=== PATIENT | female | born 1990 | race Two or more races ===

== ENCOUNTER 2017-06-12 02:26 | Emergency (ER) | payer OTHER ==
--- NOTE | 2017-06-12 05:30 | PHYS DOC ---
Past Medical History Past Medical History: No Pertinent History Past Surgical History: No Surgical History Alcohol Use: None Drug Use: None Adult General Chief Complaint Chief Complaint: EYE PROBLEMS [facility] HPI Patient is a 26 year old emailed who wears disposable contact lenses who presents with right conjunctival swelling starting earlier this evening. Patient reports mild headache, irritation around eye and blurring of vision right eye. Symptom onset was several hours prior to ED arrival. Patient denies eye injury. Patient denies wearing contact lenses that night. No foreign body sensation. No other acute symptoms or complaints. Review of Systems Review of Systems ROS as per HPI. Allergies Allergies Allergies Coded Allergies Type Severity Reaction Last Updated Verified No Known Drug Allergies 06/12/17 No Physical Exam Physical Exam Constitutional: Well developed, well nourished, no acute distress, non-toxic appearance. [] HENT: Normocephalic, atraumatic, bilateral external ears normal, oropharynx moist, no oral exudates, nose normal. [] Eyes: PERRLA, EOMI, right conjunctiva is swollen, no erythema, foreign body, purulent drainage matting. Mild upper and lower eyelid swelling without erythema. [] Neck: Normal range of motion, no tenderness, supple, no stridor. [] Cardiovascular:Heart rate regular rhythm, no murmur [] EKG EKG [] Radiology/Procedures Radiology/Procedures [] Course & Med Decision Making Course & Med Decision Making Pertinent Labs and Imaging studies reviewed. (See chart for details) [Chemosis without discrete cause. Patient left eye 20/30 with contact lens. Patient unable to see out of right eye without contact lens. No foreign bodies or obvious source of infection. Recommend supportive care with follow up with patient's eye doctor tomorrow. Courtesy no provided. Patient verbalizes understanding agreement discharge instructions prior to departure.] Dragon Disclaimer Dragon Disclaimer This electronic medical record was generated, in whole or in part, using a voice recognition dictation system. Departure Departure Impression: Primary Impression: Chemosis of right conjunctiva Disposition: 01 HOME, SELF-CARE Condition: GOOD Additional Instructions: You were evaluated in the emergency department for right eye conjunctiva swelling (chemiosis). This is a nonspecific condition usually related to eye irritation, rubbing, and sometimes to allergy and infection in contact lens wearers. Please take Benadryl upon returning home and use eyedrops as directed. If symptoms persist upon waking, take Francoise contact your eye doctor for appointment later today. ROBERT PARIS DO Jun 12, 2017 05:30
== END 2017-06-12 03:36 | disposition home or self-care (01) ==
LOC: ER 02:26
DX: H11.421 Conjunctival edema, right eye (principal)
CPT/HCPCS: 99283

== ENCOUNTER 2019-06-27 13:13 | Emergency (ER) | payer SELFPAY ==
[~2019-06-27] VITALS: Ht 157.5 cm; Wt 81.6 kg
[2019-06-27 13:20] VITALS: BP 161/110
--- NOTE | 2019-06-27 14:28 | PHYS DOC ---
Past Medical History Past Medical History: No Pertinent History Past Surgical History: No Surgical History Alcohol Use: None Drug Use: Marijuana Social History Narrative: LAST SMOKED 2 YEARS AGO Adult General Chief Complaint Chief Complaint: CHEST WALL PAIN HPI HPI Patient is a 28 year old female who presents with left-sided chest pain that is sharp when she is just sitting and constant. Patient states she woke at sharp pains with taking a deep breath also. Patient has a IUD Mirena in place. Patient is rating her pain at a 6 out of 10. Review of Systems Review of Systems Cardiovascular: Left chest pain All other systems were reviewed and found to be within normal limits, except as documented in this note. Current Medications Current Medications Current Medications Medications (Trade) Dose Ordered Sig/Agatha Start Time Stop Time Status Last Admin Dose Admin Info (CONTRAST GIVEN -- Rx MONITORING) 1 each PRN DAILY PRN 06/27/19 16:30 06/29/19 16:29 Iohexol (Omnipaque 350 Mg/ml) 90 ml 1X ONCE 06/27/19 16:30 06/27/19 16:31 DC 06/27/19 16:35 90 ML Sodium Chloride 1,000 ml @ 1,000 mls/hr 1X ONCE 06/27/19 15:15 06/27/19 16:14 DC 06/27/19 15:28 1,000 MLS/HR Allergies Allergies Allergies Coded Allergies Type Severity Reaction Last Updated Verified No Known Drug Allergies 06/12/17 No Physical Exam Physical Exam Constitutional: Well developed, well nourished, no acute distress, non-toxic appearance. [] Cardiovascular:Heart rate regular rhythm, no murmur [] Lungs & Thorax: Bilateral breath sounds clear to auscultation [] Skin: Warm, dry, no erythema, no rash. [] Extremities: No tenderness, no cyanosis, no clubbing, ROM intact, no edema. [] Neurologic: Alert and oriented X 3, normal motor function, normal sensory function, no focal deficits noted. [] Psychologic: Affect normal, judgement normal, mood normal. [] Current Patient Data Vital Signs Vital Signs Date Time Temp Pulse Resp B/P (MAP) Pulse Ox O2 Delivery O2 Flow Rate FiO2 06/27/19 13:20 97.9 65 14 161/110 (127) 98 Room Air 97.9 Lab Values Laboratory Tests Test 06/27/19 14:40 06/27/19 15:32 D-Dimer (Yamilet) 0.61 ug/mlFEU (0.00-0.50) H Sodium Level 141 mmol/L (136-145) Potassium Level 3.8 mmol/L (3.5-5.1) Chloride Level 106 mmol/L (98-107) Carbon Dioxide Level 26 mmol/L (21-32) Anion Gap 9 (6-14) Blood Urea Nitrogen 17 mg/dL (7-20) Creatinine 0.8 mg/dL (0.6-1.0) Estimated GFR (Cockcroft-Gault) 84.8 BUN/Creatinine Ratio 21 (6-20) H Glucose Level 94 mg/dL (70-99) Calcium Level 9.2 mg/dL (8.5-10.1) Total Bilirubin 0.2 mg/dL (0.2-1.0) Aspartate Amino Transferase (AST) 28 U/L (15-37) Alanine Aminotransferase (ALT) 63 U/L (14-59) H Alkaline Phosphatase 85 U/L (46-116) Total Protein 7.8 g/dL (6.4-8.2) Albumin 3.5 g/dL (3.4-5.0) Albumin/Globulin Ratio 0.8 (1.0-1.7) L POC Urine HCG, Qualitative Hcg negative (Negative) Laboratory Tests 06/27/19 14:40 EKG EKG Sinus and no STEMI[] Interpretation Time: [address] Gotti Radiology/Procedures Radiology/Procedures [] Impressions: [facility] [address] [place], [place] [id number] IMAGING REPORT Signed PATIENT: KRISTIN SLATER ACCOUNT: [id number] : 1990 LOCATION: ER AGE: 28 SEX: F EXAM STATUS: REG ER ORD. PHYSICIAN: LUIS PRATHER APRN REASON: left chest pain, RADIATES INTO NECK PROCEDURE: CHEST PA & LATERAL Exam performed: 2 views of the chest. Indication: Left chest pain radiating into the neck. Date of Service: 06/27/2019 2:20 PM . Comparison : None available Findings: PA and lateral radiographs of the chest reveal a normal cardiomediastinal contour. The lungs are clear. No pleural fluid is seen. The visualized osseous structures are unremarkable. Impression: No acute cardiopulmonary process seen. Electronically signed by: Tess Fuentes MD (06/27/2019 2:35 PM) [facility] DICTATED and SIGNED BY: TESS FUENTES MD DATE: 06/27/19 1431 [facility] [address] [place] [address] IMAGING REPORT Signed PATIENT: KRISTIN SLATER ACCOUNT: [id number] : 1990 LOCATION: ER AGE: 28 SEX: F EXAM STATUS: REG ER ORD. PHYSICIAN: LUIS PRATHER APRN REASON: elevated ddimer PROCEDURE: CT ANGIOGRAPHY CHEST CTA chest with and without contrast 06/27/2019. Reason for exam: Left-sided chest pain. Elevated d-dimer. Thin section CTA images were made through the chest using an infusion of 90 mL Omnipaque 350. MIP reconstructions also were performed. Exposure: One or more of the following individualized dose reduction techniques were utilized for this examination: 1. Automated exposure control 2. Adjustment of the mA and/or kV according to patient size 3. Use of iterative reconstruction technique. FINDINGS: The lungs are clear. No pleural fluid is seen. The central airways appear normal. No enlarged lymph nodes are seen. The thoracic aorta is normal in caliber without evidence of dissection. Evaluation of the pulmonary arterial tree shows moderate contrast opacification of the vessels. No abnormal filling defect is seen extending to the subsegmental branch level. Images through the upper abdomen show fatty infiltration of the liver. No acute abnormality is seen. IMPRESSION: No evidence of pulmonary embolism or other acute abnormality. Electronically signed by: Sakina Curiel Jr., MD (06/27/2019 5:06 PM) [facility] DICTATED and SIGNED BY: SAKINA CURIEL Jr, MD DATE: 06/27/19 5278 Course & Med Decision Making Course & Med Decision Making Patient is a 28 year old female who presents with left-sided chest pain that is sharp when she is just sitting and constant. She states at times his pain radiates down into the left lung. Patient states she woke at sharp pains with taking a deep breath also. Patient has a IUD Mirena in place. Patient is rating her pain at a 6 out of 10. Patient denies shortness of breath or palpitations or numbness and tingling. Patient denies any dizziness or recent illness, cough, injury to the chest, heavy lifting. No lower extremity swelling. No calf tenderness. Patient's EKG is sinus rhythm and no STEMI. PERC states that a PE not be ruled out due to her hormone use. Alert and oriented. Skin pink warm and dry. Ambulatory with a steady gait. Speaks in full clear sentences. Patient has an elevated d-dimer. Chest x-ray shows no acute findings. CTA chest shows no acute findings. Dragon Disclaimer Dragon Disclaimer This electronic medical record was generated, in whole or in part, using a voice recognition dictation system. Departure Departure Impression: Primary Impression: Chest wall pain Disposition: HOME, SELF-CARE Condition: STABLE Referrals: NO PCP (PCP) Patient Instructions: Chest Wall Pain Additional Instructions: Follow up with primary care provider as soon as possible. Return for worsening symptoms. Scripts Hydrocodone/Apap 5-325 (NORCO 5-325 TABLET) 1 Each Tablet 1 TAB PO PRN Q6HRS PRN for PAIN, #8 TAB 0 Refills Prov: LUIS PRATHER APRN 06/27/19 LUIS PRATHER APRN Jun 27, 2019 14:28
--- NOTE | 2019-06-27 14:39 | RAD ---
Exam performed: 2 views of the chest. Indication: Left chest pain radiating into the neck. Date of Service: 06/27/2019 2:20 PM . Comparison : None available Findings: PA and lateral radiographs of the chest reveal a normal cardiomediastinal contour. The lungs are clear. No pleural fluid is seen. The visualized osseous structures are unremarkable. Impression: No acute cardiopulmonary process seen. Electronically signed by: Tess Fuentes MD (06/27/2019 2:35 PM) [facility]
[2019-06-27] MEDS ORDERED: IV NORMAL SALINE 1000ML BAG 1,000 ML IV ONE (15:15)
[2019-06-27 15:51] LABS: CALCIUM 9.2 mg/dL (8.5-10.1); CREATININE 0.8 mg/dL (0.6-1.0); GFR 84.8; POTASSIUM 3.8 mmol/L (3.5-5.1)
[2019-06-27 15:58] LABS: ALBUMIN 3.5 g/dL (3.4-5.0); ALBUMIN/GLOBULIN RATIO 0.8 (1.0-1.7); TOTAL BILIRUBIN 0.2 mg/dL (0.2-1.0); TOTAL PROTEIN 7.8 g/dL (6.4-8.2)
[2019-06-27] MEDS ORDERED: IOHEXOL 350 MG/ML 100 ML VIAL. IV ONE (16:30)
[2019-06-27] MEDS ORDERED: CONTRAST GIVEN. MC PRN (16:30)
--- NOTE | 2019-06-27 17:09 | RAD ---
CTA chest with and without contrast 06/27/2019. Reason for exam: Left-sided chest pain. Elevated d-dimer. Thin section CTA images were made through the chest using an infusion of 90 mL Omnipaque 350. MIP reconstructions also were performed. Exposure: One or more of the following individualized dose reduction techniques were utilized for this examination: 1. Automated exposure control 2. Adjustment of the mA and/or kV according to patient size 3. Use of iterative reconstruction technique. FINDINGS: The lungs are clear. No pleural fluid is seen. The central airways appear normal. No enlarged lymph nodes are seen. The thoracic aorta is normal in caliber without evidence of dissection. Evaluation of the pulmonary arterial tree shows moderate contrast opacification of the vessels. No abnormal filling defect is seen extending to the subsegmental branch level. Images through the upper abdomen show fatty infiltration of the liver. No acute abnormality is seen. IMPRESSION: No evidence of pulmonary embolism or other acute abnormality. Electronically signed by: Alexandre Curiel Jr., MD (06/27/2019 5:06 PM) [facility]
[2019-06-27] MEDS ORDERED: HYDR-3164 PO (17:19)
--- NOTE | 2019-06-28 06:26 | EKG ---
[facility] [address] [place] [address] Test Date: 2019-06-27 Test Time: 13:35:30 Pat Name: KRISTIN SLATER Department: Room: Gender: F [employer]: : 1990 Requested By: LUIS PRATHER Order Number: [id number] Reading MD: Measurements Intervals [place] Rate: 76 P: 29 OK: 142 QRS: 15 QRSD: 82 T: 9 QT: 388 QTc: 441 Interpretive Statements SINUS RHYTHM QRS(T) CONTOUR ABNORMALITY CONSIDER ANTEROLATERAL MYOCARDIAL DAMAGE POSSIBLY ABNORMAL ECG RI6.01 No previous ECG available for comparison
== END 2019-06-27 17:40 | disposition home or self-care (01) ==
LOC: ER 13:13
DX: R07.1 Chest pain on breathing (principal)
CPT/HCPCS: 36415; 71046; 71275; 80053; 81025; 85379; 93005; 99285; J7030; Q9967

== ENCOUNTER 2020-08-18 20:48 | Emergency (ER) | payer SELFPAY ==
[~2020-08-18] VITALS: Ht 157.5 cm; Wt 81.8 kg
[~2020-08-18 20:48] MED LIST: HYDR-3164 PO
[2020-08-18 20:50] VITALS: BP 161/108
[2020-08-18] MEDS ORDERED: CEPHALEXIN 250 MG CAPSULE. PO ONE (21:45)
[2020-08-18] MEDS ORDERED: LIDOCAINE 1%/EPI 1:100,000 20 ML VIAL. INJ ONE (21:45)
[2020-08-18] MEDS ORDERED: CEPH-264 PO (21:52)
--- NOTE | 2020-08-18 21:53 | PHYS DOC ---
Past Medical History Past Medical History: No Pertinent History Past Surgical History: No Surgical History Smoking Status: Current Every Day Smoker Alcohol Use: None Drug Use: Marijuana General Adult EDM: Chief Complaint: HEADACHE HPI: HPI: History obtained from patient. Patient is a 30-year-old female no reported past medical history who presents with complaint of swelling and bump to the top of her head. She states she noted a slight pimple to the top of her head 2 weeks ago. She states later that day she slipped and hit the top of her head. States the swelling is worsened since then. She also notes that she has had some mild swelling to the left side of her neck that began earlier today. Denies unexplained weight loss. Denies fevers. Denies history of MRSA. Denies history of IV drug use. Denies history of abscess. Has not tried to drain the wound on her own. No other complaints. Review of Systems: Review of Systems: Constitutional: Denies fever or chills. [] Eyes: Denies change in visual acuity. [] HENT: Denies nasal congestion or sore throat. [] Respiratory: Denies cough or shortness of breath. [] Cardiovascular: Denies chest pain or edema. [] GI: Denies abdominal pain, nausea, vomiting, bloody stools or diarrhea. [] : Denies dysuria. [] Musculoskeletal: Denies back pain or joint pain. [] Integument: Swelling to the top of the head Neurologic: Denies headache, focal weakness or sensory changes. [] Endocrine: Denies polyuria or polydipsia. [] Lymphatic: Denies swollen glands. [] Psychiatric: Denies depression or anxiety. [] Heart Score: Risk Factors: Risk Factors: DM, Current or recent (<one month) smoker, HTN, HLP, family history of CAD, obesity. Risk Scores: Score 0 - 3: 2.5% MACE over next 6 weeks - Discharge Home Score 4 - 6: 20.3% MACE over next 6 weeks - Admit for Clinical Observation Score 7 - 10: 72.7% MACE over next 6 weeks - Early Invasive Strategies Current Medications: Current Medications Medications (Trade) Dose Ordered Sig/Agatha Start Time Stop Time Status Last Admin Dose Admin Cephalexin HCl (Keflex) 500 mg 1X ONCE 08/18/20 21:45 08/18/20 21:46 Lidocaine/ Epinephrine (LIDOCAINE 1%-EPI 1:100,000 Multi-Dose) 20 ml 1X ONCE 08/18/20 21:45 08/18/20 21:46 Allergies: Allergies: Allergies Coded Allergies Type Severity Reaction Last Updated Verified No Known Drug Allergies 06/12/17 No Physical Exam: PE: Constitutional: Well developed, well nourished, no acute distress, non-toxic appearance. [] HENT: 2 x 2 centimeter area of fluctuance palpated to the top of the head. No surrounding induration or erythema appreciated. Eyes: PERRLA, EOMI, conjunctiva normal, no discharge. [] Neck: Swollen lymph node palpated to the left posterior auricular chain. Cardiovascular:Heart rate regular rhythm, no murmur [] Lungs & Thorax: Bilateral breath sounds clear to auscultation [] Abdomen: soft, no tenderness, no masses, no pulsatile masses. [] Skin: Warm, dry, no erythema, no rash. [] Back: No tenderness, no CVA tenderness. [] Extremities: No tenderness, no cyanosis, no clubbing, ROM intact, no edema. [] Neurologic: Alert and oriented X 3, normal motor function, normal sensory function, no focal deficits noted. [] Psychologic: Affect normal, judgement normal, mood normal. [] EKG: EKG: [] Radiology/Procedures: Radiology/Procedures: [] Location: Scalp Indications: Fluid collection Procedure Details: Patient's scalp was exposed, positioned, and prepped using ChloraPrep. Landmarks were palpated and skin was appropriately marked as needed. For skin and subcutaneous tissue, 4cc of 1% lidocaine with epinephrine was used. A 1 cm incision was made using #10 through skin in a linear fashion. Immediate findings included 10mL of purulent and cystic material. Cavity further explored to break up all loculations. Wound was irrigated using 20 cc of normal saline. Minimal amount of bleeding occurred, controlled with direct pressure. Wound packed with 1/4" and covered with sterile dressing. Course & Med Decision Making: Course & Med Decision Making Pertinent Labs and Imaging studies reviewed. (See chart for details) [] Patient is a 30-year-old female presents with chief complaint of swelling to the top of her head. Incision and drainage was performed. Clinically more likely consistent with sebaceous cyst versus abscess upon drainage. However given the swelling and discomfort antibiotics to be prescribed. Lateral neck swelling likely lymph node inflammation secondary to potential infection. She was encouraged follow-up with her primary care physician in the next 2 to 3 days. Precautions discussed and understood. Stable for discharge home. Chrystal Disclaimer: Chrystal Disclaimer: This electronic medical record was generated, in whole or in part, using a voice recognition dictation system. Departure Departure Impression: Primary Impression: Sebaceous cyst Disposition: DC HOME SELF CARE/HOMELESS Referrals: NO PCP (PCP) MARIELLA PRECIADO MD Patient Instructions: Abscess, Care After, Cyst Removal Additional Instructions: Please have wound reevaluated in the next 2 to 3 days by your primary care physician. Scripts Cephalexin (KEFLEX) 500 Mg Capsule 1 CAP PO QID for 5 Days, #20 CAP 0 Refills Prov: FAHAD EPPS DO 08/18/20 FAHAD EPPS DO Aug 18, 2020 21:53
== END 2020-08-18 22:10 | disposition home or self-care (01) ==
LOC: ER 20:48
DX: L72.3 Sebaceous cyst (principal); L02.811 Cutaneous abscess of head [any part, except face]; R59.0 Localized enlarged lymph nodes; F17.200 Nicotine dependence, unspecified, uncomplicated
CPT/HCPCS: 10060; 99283; J3490

== ENCOUNTER 2020-08-22 14:42 | Emergency (ER) | payer SELFPAY ==
[~2020-08-22] VITALS: Ht 157.5 cm; Wt 81.0 kg
[~2020-08-22 14:42] MED LIST changes: +CEPH-264 PO
[2020-08-22 15:40] VITALS: BP 146/94
--- NOTE | 2020-08-22 15:55 | ED.ADGEN ---
Past Medical History Past Medical History: No Pertinent History Past Surgical History: No Surgical History Smoking Status: Current Every Day Smoker Alcohol Use: None Drug Use: Marijuana General Adult EDM: Chief Complaint: WOUND RECHECK/SUTURE REMOVAL HPI: HPI: Patient is a 30 year old female who presents to the emergency room with need for packing removal. Patient states she had a abscess on her scalp drained here 5 days ago. She reports she has been taking medication as prescribed. She denies any fever, increased pain, headache, or swelling. She states that she had an appointment with her primary care doctor but the appointment was canceled so she came here to have the wound rechecked. Review of Systems: Review of Systems: Complete ROS is negative unless otherwise noted in HPI. Allergies: Allergies: Allergies Coded Allergies Type Severity Reaction Last Updated Verified No Known Drug Allergies 06/12/17 No Physical Exam: PE: See Above Constitutional: Well developed, well nourished, no acute distress, non-toxic appearance. [] HENT: Normocephalic, atraumatic, bilateral external ears normal, nose normal. [] Eyes: PERRLA, EOMI, conjunctiva normal, no discharge. [] Neck: Normal range of motion, no stridor. [] Cardiovascular:Heart rate regular rhythm Lungs & Thorax: Respirations even and unlabored, no retractions, no respiratory distress Skin: Warm, dry, no erythema, no rash; abscess noted to the crown of patient's scalp, appears to be healing, packing in place, the packing was removed by myself and a small amount of serous drainage came from the wound bed, no complications.. [] Extremities: No cyanosis, ROM intact, no edema. [] Neurologic: Alert and oriented X 3, no focal deficits noted. [] Psychologic: Affect normal, judgement normal, mood normal. [] Current Patient Data: Vital Signs: Vital Signs Date Time Temp Pulse Resp B/P (MAP) Pulse Ox O2 Delivery O2 Flow Rate FiO2 08/22/20 15:40 97.8 67 18 146/94 (111) 99 Room Air 97.8 EKG: EKG: [] Heart Score: Risk Factors: Risk Factors: DM, Current or recent (<one month) smoker, HTN, HLP, family history of CAD, obesity. Risk Scores: Score 0 - 3: 2.5% MACE over next 6 weeks - Discharge Home Score 4 - 6: 20.3% MACE over next 6 weeks - Admit for Clinical Observation Score 7 - 10: 72.7% MACE over next 6 weeks - Early Invasive Strategies Radiology/Procedures: Radiology/Procedures: [] Course & Med Decision Making: Course & Med Decision Making Pertinent Labs and Imaging studies reviewed. (See chart for details) [] Dragon Disclaimer: Dragon Disclaimer: This electronic medical record was generated, in whole or in part, using a voice recognition dictation system. Departure Departure Impression: Primary Impression: Encounter for abscess packing removal Additional Impression: Encounter for wound re-check Disposition: 01 DC HOME SELF CARE/HOMELESS Condition: STABLE Referrals: NO PCP (PCP) Patient Instructions: Incision and Drainage, Care After Additional Instructions: Continue taking the antibiotics as previously prescribed. Take Tylenol or ibupr ofen as needed for pain. Follow-up with your primary care doctor for wound recheck next week, return to ER if symptoms worsen or fever develops. Attending Signature Attending Signature I have reviewed the PA/SORT MANAGER's note and plan of care. I was available for consultation as needed during the patient's visit in the emergency department. I agree with the clinical impression, plan, and disposition. Problem Qualifiers JAILENE REYNOLDS APRN Aug 22, 2020 15:55 HUGO WATERS DO Aug 22, 2020 20:17
== END 2020-08-22 16:01 | disposition home or self-care (01) ==
LOC: ER 14:42
DX: L02.811 Cutaneous abscess of head [any part, except face] (principal); F17.200 Nicotine dependence, unspecified, uncomplicated; F12.90 Cannabis use, unspecified, uncomplicated
CPT/HCPCS: 99282